=== PATIENT | male | born 1970 | race Caucasian/White ===

== ENCOUNTER 2022-04-26 18:36 | Emergency (ER) | payer MEDICAID ==
[~2022-04-26] VITALS: Ht 175.3 cm; Wt 73.0 kg
[2022-04-27 03:53] VITALS: BP 112/72
== END 2022-04-27 04:55 | disposition home or self-care (01) ==
LOC: ER 18:36
DX: F10.129 Alcohol abuse with intoxication, unspecified (principal); Y90.0 Blood alcohol level of less than 20 mg/100 ml; R56.9 Unspecified convulsions
CPT/HCPCS: 99283

== ENCOUNTER 2022-05-01 17:26 | Emergency (ER) | payer MEDICAID ==
[~2022-05-01] VITALS: Ht 177.8 cm; Wt 73.0 kg
[2022-05-01 17:30] VITALS: BP 133/92
[2022-05-01] MEDS ORDERED: ACETAMINOPHEN 325MG TABLET PO ONE (20:15)
== END 2022-05-01 20:30 | disposition left against medical advice (07) ==
LOC: ER 17:26
DX: M54.2 Cervicalgia (principal); M54.50 Low back pain, unspecified; Z86.59 Personal history of other mental and behavioral disorders; Z86.73 Personal history of transient ischemic attack (TIA), and cerebral infarction without residual deficits; Z53.21 Procedure and treatment not carried out due to patient leaving prior to being seen by health care provider
CPT/HCPCS: 99283

== ENCOUNTER 2022-05-07 16:43 | Emergency (ER) | payer MEDICAID ==
[~2022-05-07] VITALS: Ht 167.6 cm; Wt 69.0 kg
[2022-05-07 18:16] LABS: BASOPHILS % 0.6 % (0.0-2.0); EOSINOPHILS % 1.9 % (0.0-5.0); HEMATOCRIT. 39.8 % (42.0-52.0); HEMOGLOBIN. 13.5 g/dL (14.0-18.0); LYMPHOCYTES % 33.6 % (20.0-50.0); MEAN CORPUSCULAR HEMOGLOBIN 31.5 pg (28.0-32.0); MEAN CORPUSCULAR VOLUME 92.5 fL (80.0-94.0); MONOCYTES % 12.6 % (2.0-8.0); NEUTROPHILS % 51.3 % (40.0-76.0); PLATELET 168 x1000/uL (130-400); RED BLOOD CELL COUNT 4.31 mill/uL (4.7-6.1); RED CELL DISTRIBUTION WIDTH 16.2 % (11.6-14.6)
[2022-05-07 18:22] LABS: CHLORIDE 106 mEq/L (98-107)
[2022-05-07 18:31] LABS: ETHANOL BLOOD 221 mg/dL
[2022-05-07] MEDS ORDERED: POTASSIUM CHLORIDE 20MEQ TABLET SR PO NR (20:00)
[2022-05-07] MEDS ORDERED: NYSTATIN 100,000 UNITS/GM CREAM 15GM TOP SCH (21:00)
[2022-05-07 22:44] LABS: *AMPHETAMINES SCREEN URINE NEGATIVE (NEGATIVE); *BARBITURATES SCREEN URINE NEGATIVE (NEGATIVE); *BENZODIAZEPINES SCREEN URINE NEGATIVE (NEGATIVE); *COCAINE SCREEN URINE NEGATIVE (NEGATIVE); CANNABINOID URINE SCREEN PRESUMTIVE POSITIVE (NEGATIVE); METHADONE URINE SCREEN NEGATIVE (NEGATIVE); OPIATES URINE SCREEN NEGATIVE (NEGATIVE); PHENCYCLIDINE URINE SCREEN NEGATIVE (NEGATIVE)
[2022-05-08 01:37] VITALS: BP 112/66
== END 2022-05-08 03:03 | disposition home or self-care (01) ==
LOC: ER 16:43
DX: F10.229 Alcohol dependence with intoxication, unspecified (principal); Y90.7 Blood alcohol level of 200-239 mg/100 ml; Z86.73 Personal history of transient ischemic attack (TIA), and cerebral infarction without residual deficits
CPT/HCPCS: 36415; 71045; 80053; 80305; 80320; 83880; 84484; 85025; 93005; 99285; G0480

== ENCOUNTER 2022-05-08 15:03 | Emergency (ER) | payer MEDICAID ==
[~2022-05-08] VITALS: Ht 167.6 cm; Wt 65.0 kg
[2022-05-08 15:04] VITALS: BP 95/62
== END 2022-05-08 22:42 | disposition left against medical advice (07) ==
LOC: ER 15:03
DX: Z53.21 Procedure and treatment not carried out due to patient leaving prior to being seen by health care provider (principal)

== ENCOUNTER 2022-05-12 20:32 | Emergency (ER) | payer MEDICAID ==
[~2022-05-12] VITALS: Ht 177.8 cm; Wt 98.0 kg
[2022-05-12 20:38] VITALS: BP 122/74
[2022-05-12] MEDS ORDERED: DEXTROSE 50% WATER 50ML SYRINGE IV ONE (23:15)
== END 2022-05-13 05:13 | disposition home or self-care (01) ==
LOC: ER 20:32
DX: F10.229 Alcohol dependence with intoxication, unspecified (principal); Y90.0 Blood alcohol level of less than 20 mg/100 ml; R56.9 Unspecified convulsions; Z86.73 Personal history of transient ischemic attack (TIA), and cerebral infarction without residual deficits
CPT/HCPCS: 82962; 99283

== ENCOUNTER 2022-05-15 18:36 | Emergency (ER) | payer MEDICAID ==
[~2022-05-15] VITALS: Ht 177.8 cm; Wt 80.0 kg
[2022-05-15 18:56] VITALS: BP 135/90
[2022-05-15 19:58] LABS: BASOPHILS % 0.6 % (0.0-2.0); EOSINOPHILS % 0.7 % (0.0-5.0); HEMOGLOBIN. 14.9 g/dL (14.0-18.0); MEAN CORPUSCULAR HEMOGLOBIN 30.7 pg (28.0-32.0); MEAN CORPUSCULAR VOLUME 92.8 fL (80.0-94.0); MEAN PLATELET VOLUME 8.1 fl (7.4-10.4); MONOCYTES % 8.8 % (2.0-8.0); NEUTROPHILS % 56.9 % (40.0-76.0); PLATELET 196 x1000/uL (130-400); RED BLOOD CELL COUNT 4.85 mill/uL (4.7-6.1); RED CELL DISTRIBUTION WIDTH 16.5 % (11.6-14.6)
[2022-05-15 20:07] LABS: CHLORIDE 99 mEq/L (98-107)
[2022-05-15 20:18] LABS: ETHANOL BLOOD 276 mg/dL
== END 2022-05-16 03:38 | disposition home or self-care (01) ==
LOC: ER 18:36
DX: F10.229 Alcohol dependence with intoxication, unspecified (principal); I10 Essential (primary) hypertension; G40.909 Epilepsy, unspecified, not intractable, without status epilepticus; Z86.73 Personal history of transient ischemic attack (TIA), and cerebral infarction without residual deficits; Y90.8 Blood alcohol level of 240 mg/100 ml or more
CPT/HCPCS: 36415; 80053; 80320; 85025; 99283; G0480